=== PATIENT | male | born 1965 | race Caucasian/White ===

== ENCOUNTER 2020-10-04 10:49 | Emergency (ER) | payer OTHER ==
[2020-10-04] MEDS ORDERED: TESSALON PERLE100 MG PO (12:35)
[2020-10-04] MEDS ORDERED: ZITHROMAX250 MG PO (12:35)
[2020-10-04] MEDS ORDERED: PROVENTIL HFA6.7 GM INH (12:35)
== END 2020-10-04 12:41 | disposition home or self-care (01) ==
LOC: ER1 10:49
DX: U07.1 COVID-19 (principal); J12.82 Pneumonia due to coronavirus disease 2019; E11.9 Type 2 diabetes mellitus without complications; I10 Essential (primary) hypertension
CPT/HCPCS: 0240U; 71045; 99283

== ENCOUNTER 2020-10-06 09:05 | Emergency (ER) | payer OTHER ==
[~2020-10-06 09:05] MED LIST: PROVENTIL HFA6.7 GM INH; TESSALON PERLE100 MG PO; ZITHROMAX250 MG PO
[2020-10-06 09:33] LABS: HEMOGLOBIN 15.5 gm/dl (14.0-17.5); RED BLOOD COUNT 5.06 M/UL (4.20-5.50); WHITE BLOOD COUNT 3.5 K/UL (4.5-11.0)
[2020-10-06 10:01] LABS: BUN/CREATININE RATIO 14 (0-10)
== END 2020-10-06 14:52 | disposition other institution (70) ==
LOC: ER1 09:05
PROVIDERS: Emergency Medicine
DX: A41.89 Other specified sepsis (principal); U07.1 COVID-19; J12.82 Pneumonia due to coronavirus disease 2019; R09.02 Hypoxemia; M62.82 Rhabdomyolysis; R79.89 Other specified abnormal findings of blood chemistry; E87.1 Hypo-osmolality and hyponatremia
CPT/HCPCS: 36600; 71045; 80053; 82550; 82553; 82803; 83605; 83690; 83874; 83880; 84484; 85025; 87040; 93005; 96365; 96375; 99284; J0696; J1100; J2405